=== PATIENT | male | born 1980 | race Hispanic/Latino ===

== ENCOUNTER 2019-03-29 10:21 | Inpatient (IN) | payer OTHER | END 2019-03-31 18:38 | disposition home or self-care (01) | LOC: EDH 10:21 → EDHIP 13:09 → 3BH 14:18 | DX: K57.80 Diverticulitis of intestine, part unspecified, with perforation and abscess without bleeding (principal); I10 Essential (primary) hypertension ==

== ENCOUNTER 2020-02-01 06:04 | Emergency (ER) | payer OTHER ==
[2020-02-01] MEDS ORDERED: ONDANSETRON ODT 4 MG TAB ONE (08:30)
[2020-02-01] MEDS ORDERED: DIPHENHYDRAMINE HCL 25 MG CAPSULE ONE (08:31)
== END 2020-02-01 09:12 | disposition home or self-care (01) ==
LOC: EDH 06:04
DX: U07.1 COVID-19 (principal); F41.9 Anxiety disorder, unspecified; R53.81 Other malaise; I10 Essential (primary) hypertension; Z90.49 Acquired absence of other specified parts of digestive tract
CPT/HCPCS: 36415; 71045; 99283; Q0163; U0003

== ENCOUNTER 2023-09-06 14:16 | Emergency (ER) | payer BC, OTHER ==
[~2023-09-06] VITALS: Ht 170.2 cm; Wt 117.9 kg
[~2023-09-06 14:16] MED LIST: LEVO-70 PO; METR-172 PO; TELM1TAB31 PO
[2023-09-06 15:22] LABS: BASOPHILS # (AUTO) 0.01 K/uL (0.00-0.20); BASOPHILS % (AUTO) 0.2 % (0.0-5.0); EOSINOPHILS # (AUTO) 0.09 K/uL (0.00-0.70); EOSINOPHILS % (AUTO) 1.4 % (0.0-8.0); HEMATOCRIT 47.9 % (42-54); IMMATURE GRANULOCYTE ABSOLUTE 0.01 K/uL (0-1); LYMPHOCYTES # (AUTO) 1.3 K/uL (1.0-4.8); LYMPHOCYTES % (AUTO) 20.7 % (21.0-51.0); MEAN CORPUSCULAR HEMOGLOBIN 28.2 pg (27.0-33.0); MEAN CORPUSCULAR HGB CONC 34.9 g/dL (32.0-36.0); MEAN CORPUSCULAR VOLUME 80.9 fL (79-99); MONOCYTES # (AUTO) 0.7 K/uL (0.1-1.0); MONOCYTES % (AUTO) 10.3 % (3.0-13.0); NEUTROPHILS # (AUTO) 4.3 K/uL (1.8-7.7); NEUTROPHILS % (AUTO) 67.2 % (40.0-77.0); PLATELET COUNT (AUTO) 207 K/uL (130-400); RED BLOOD CELL COUNT(AUTO) 5.92 MIL/uL (4.50-6.20); RED CELL DISTRIBUTION WIDTH 12.1 % (11.0-15.5); WHITE BLOOD COUNT (AUTO) 6.4 K/uL (4.8-10.8)
[2023-09-06 15:44] LABS: POTASSIUM 4.6 mmol/L (3.5-5.1)
[2023-09-06 15:48] LABS: BILIRUBIN,TOTAL 0.6 mg/dL (0.2-1.0); TOTAL PROTEIN, SERUM 7.8 g/dL (6.0-8.3)
[2023-09-06 16:40] VITALS: TEMP 100
[2023-09-06] MEDS: ACETAMINOPHEN 500 MG TABLET PO ONE (16:40)
[2023-09-06] MEDS: CLONIDINE HCL 0.1 MG TABLET PO ONE (16:41)
[2023-09-06 17:25] VITALS: BP 159/92; PULSE 81; RESP 20; O2SAT 98
== END 2023-09-06 17:27 | disposition home or self-care (01) ==
LOC: EDH 14:16
DX: U07.1 COVID-19 (principal); I10 Essential (primary) hypertension; R05.9 Cough, unspecified
CPT/HCPCS: 36415; 71045; 80053; 84484; 85025; 93005